=== PATIENT | male | born 1960 | race Caucasian/White ===

== ENCOUNTER → 2021-06-11 10:45 | Outpatient (BNVA) | payer BC, SELFPAY | PROVIDERS: Visit Provider Podiatrist Foot & Ankle Surgery | DX: M79.671 Pain in right foot (principal) | CPT/HCPCS: 73630 ==

== ENCOUNTER → 2021-10-20 14:42 | Outpatient (BNVA) | payer MEDICARE, MEDICAID, SELFPAY | PROVIDERS: PCP Physician Assistant Medical; Visit Provider Specialist | DX: M25.561 Pain in right knee (principal); G89.29 Other chronic pain; M25.761 Osteophyte, right knee | CPT/HCPCS: 73560; 73565 ==

== ENCOUNTER 2021-12-28 09:07 | Emergency (ER) | payer MEDICARE, MEDICAID, SELFPAY ==
[2021-12-28 09:20] VITALS: BP 131/81; PULSE 60; RESP 16; TEMP 37; O2SAT 96; BMI 32.8
--- NOTE | 2021-12-28 09:44 | ED_ITS ---
HPI - Abdominal Pain General: Chief Complaint: Abdominal Pain Stated Complaint: Right side pain Time Seen by Provider: 12/28/21 09:30 Source: patient and family Mode of arrival: ambulatory Limitations: other (TBI) History of Present Illness: 61-year-old male presents to the ER today for right-sided pain that began on Wednesday. Patient reports his pain was more significant on Wednesday. It seemed to come and go. It is described as a sharp pain on his right side. This is not in the front or the back but more on the side. He reports it was worse with movement. He denies any nausea or vomiting associated. Denies any diarrhea or constipation. Patient reports the pain improved some yesterday and is a little bit better today also. Patient reports the pain one time radiated across his abdomen but otherwise stays on the right side. Patient does not have his gallbladder. He reports eating does not seem to make the pain worse. Patient denies any urinary symptoms. Denies increased urination, pain with urination, blood in his urine. Review of Systems General: Reports: 10 or more systems reviewed and unremarkable except in HPI and below PFSH ED PFSH: Social History Smoking and tobacco status: never smoked Physical Exam Const: COMMON NORMALS: no acute distress, healthy appearing and alert; negative for average body habitus (obese) HENMT: COMMON NORMALS: normocephalic, atraumatic, external ears normal, Normal external nose present and moist oral mucous membranes HEAD & SCALP: normocephalic and atraumatic NOSE: Normal external nose present EXTERNAL EAR: Yes external ears normal Eye: COMMON NORMALS: conjunctivae normal CONJUNCTIVA: Yes conjunctivae normal Resp: COMMON NORMALS: normal respiratory effort and No retractions Cardio: COMMON NORMALS: regular rate and regular rhythm RATE: regular rate RHYTHM: regular rhythm GI: COMMON NORMALS: Normal to inspection, nondistended, normoactive bowel sounds present, Soft to palpation, non-tender, No hepatosplenomegaly present and no masses AUSCULTATION: Yes normoactive bowel sounds PALPATION: Yes Soft to palpation and Yes No hepatosplenomegaly present : COMMON NORMALS: Yes no CVA tenderness BLADDER/KIDNEY EXAM: Yes no CVA tenderness Back/Pelvis: COMMON NORMALS: no CVA tenderness Extremity: COMMON NORMALS: normal to inspection Neuro: SENSORIUM/ORIENTATION: Yes alert Psych: OTHER: at pts baseline Skin: COMMON NORMALS: no rashes or lesions noted GENERAL SKIN EXAM: no rashes or lesions noted Course ED course: 61-year-old male presents to the ER today for right side pain that began on Wednesday. This pain has improved some at this time. He describes as a pain that occurs off and on. It is not associated with eating. Patient reports it is more associated with movement. Denies any nausea or vomiting diarrhea or constipation. Patient does not have his gallbladder. He denies any urinary symptoms such as increased urination, pain with urination, blood in the urine. We will get a KUB at this time. I do not suspect an acute abdomen based on history and physical exam. We will get a UA. 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 Patient reports the pain is starting to improve however on Wednesday was intermittent and worse with movement. Patient reports he is unable to find a cause other than movement worsening the pain. This is a sharp pain that comes and goes. Patient has no issues with urination and urine analysis in the ER is normal. We did a KUB in the ER today which was normal. I suspect some mild constipation causing patient's issues. Patient's pain has improved since Wednesday. If continuing to improve there is nothing to be concerned about. If patient's pain worsens or returns he should follow-up with PCP in 3 to 5 days. Return to the ER with new or worsening symptoms. Patient and caregiver verbalized understanding and are in agreement with the treatment plan. Lab Data Labs/Radiology: Radiology Impressions KUB X-Ray 12/28/21 09:49 IMPRESSION: No acute findings. Laboratory Results Urine Color Yellow (Yellow) 12/28/21 10:00 Urine Appearance Clear (CLEAR) 12/28/21 10:00 Urine pH 5 (5-7) 12/28/21 10:00 Ur Specific [place] 1.010 (1.005-1.030) 12/28/21 10:00 Urine Protein Neg (Negative) 12/28/21 10:00 Urine Glucose (UA) Norm (Normal) 12/28/21 10:00 Urine Ketones Negative (Negative) 12/28/21 10:00 Urine Blood Neg (Negative) 12/28/21 10:00 Urine Nitrate Negative (Negative) 12/28/21 10:00 Urine Bilirubin Neg (Negative) 12/28/21 10:00 Urine Urobilinogen Norm mg/dL (Negative) 12/28/21 10:00 Ur Leukocyte Esterase Negative (Negative) 12/28/21 10:00 Critical Care Time Critical Care Time: Critical Care Time: No Discharge Plan Discharge Patient Disposition: Home Clinical Impression: Right sided abdominal pain Condition: Stable Prescriptions: No Action lisinopril 10 mg tablet 10 mg PO DAILY 0RF meloxicam 15 mg tablet 15 mg PO .3 x Weekly 0RF silver sulfadiazine [Silvadene] 1 % cream 1 applic topical BID Qty: 50 0RF Rx Instructions: apply a 1.5 mm thickness (DME) Handicapped Toilet Extra High See Rx Instructions .Route .MEDSUPPLY Qty: 1 0RF Rx Instructions: Extra High toilet (21 bowl height) needed for osteoarthritis of the right knee. terbinafine HCl 250 mg tablet 250 mg PO DAILY 30 Days Qty: 30 2RF Discharge Orders: Discharge ED (Routine); Ordered 12/28/21 Ordered By: Qian Bloom Referrals: Coy Che [Primary Care Provider] - Discharge Diet: Usual diet Discharge Activity: Resume usual activity Patient Instructions: Abdominal Pain (ED), Opioid Safety Activity Restrictions/Additional Instructions: Continue the MiraLAX and add it daily if not taking daily. Activity recommended to help bowels regulate. Follow-up with PCP in 3 to 5 days if no improvement. Return to the ER with new or worsening symptoms. Coding Level of Care Code ED [employer] for [employer] Exam Comprehensive
--- NOTE | 2021-12-28 09:49 | XRR_ITS ---
PROCEDURE INFORMATION: Exam: XR Abdomen Exam date and time: 12/28/2021 10:20 AM Age: 61 years old Clinical indication: Abdominal pain; Localized; Right; Additional info: R sided abdominal pain TECHNIQUE: Imaging protocol: XR of the abdomen. Views: Frontal supine view of the abdomen. 1 View. COMPARISON: No relevant prior studies available. FINDINGS: Gastrointestinal tract: Normal. No bowel dilation. Bones/joints: Unremarkable. XR/XR KUB [id number] IMPRESSION: No acute findings.
[2021-12-28 10:53] LABS: Add Urine Microscopic? NO; Charge for UA Resulting for Rev
[2021-12-28 10:55] LABS: Urine Appearance Clear (CLEAR); Urine Color Yellow (Yellow)
[2021-12-28 11:02] LABS: Bilirubin Urine Neg (Negative); Blood Urine Neg (Negative); Glucose Urine UA Norm (Normal); Ketones Urine Negative (Negative); Leukocyte Esterase Urine Negative (Negative); Nitrate Urine Negative (Negative); Protein Urine Neg (Negative); Urobilinogen Urine Norm (Negative); pH Urine 5 (5-7)
[2021-12-28 11:39] VITALS: BP 101/53; PULSE 53; RESP 15; O2SAT 94
[2021-12-28 11:41] VITALS: BP 101/53; PULSE 53; RESP 15; O2SAT 94
== END 2021-12-28 11:35 | disposition home or self-care (01) ==
PROVIDERS: Emergency Provider Physician Assistant; PCP Physician Assistant Medical
DX: R10.9 Unspecified abdominal pain (principal); Z87.820 Personal history of traumatic brain injury
CPT/HCPCS: 74018; 81003; 99283

== ENCOUNTER → 2022-04-02 10:21 | Outpatient (BNVA) | payer MEDICARE, MEDICAID, SELFPAY | PROVIDERS: PCP Physician Assistant Medical; Visit Provider Podiatrist Foot & Ankle Surgery | DX: B35.3 Tinea pedis (principal); B35.1 Tinea unguium | CPT/HCPCS: 11750; A6219; A6446 ==

== ENCOUNTER → 2022-07-30 10:16 | Outpatient (BNVA) | payer MEDICARE, MEDICAID, SELFPAY | PROVIDERS: PCP Physician Assistant Medical; Visit Provider Podiatrist Foot & Ankle Surgery | DX: L60.8 Other nail disorders (principal); B35.1 Tinea unguium; B35.3 Tinea pedis | CPT/HCPCS: 99213 ==

== ENCOUNTER → 2025-07-23 10:12 | Outpatient (BNVA) | payer MEDICARE, MEDICAID, SELFPAY | PROVIDERS: PCP Physician Assistant Medical; Visit Provider Podiatrist Foot & Ankle Surgery | DX: L60.8 Other nail disorders (principal); B35.1 Tinea unguium; B35.3 Tinea pedis | CPT/HCPCS: 99213 ==